=== PATIENT | male | born 1960 | race Caucasian/White ===

== ENCOUNTER 2020-06-29 03:12 | Emergency (ER) | payer OTHER ==
[~2020-06-29] VITALS: Ht 175.3 cm; Wt 86.2 kg
[2020-06-29 03:16] VITALS: Ht 175.3 cm; Wt 86.2 kg
[2020-06-29 04:51] LABS: PLATELET COUNT 275 x10^3mcL (130-400); RED CELL DISTRIBUTION WIDTH 13.9 % (11.5-14.5)
[2020-06-29 04:59] LABS: CALCIUM 9.4 mg/dL (8.5-10.1); CARBON DIOXIDE 27.1 mmol/L (21-32); CREATININE SERUM 1.3 mg/dL (0.7-1.3); POTASSIUM SERUM 4.6 mmol/L (3.5-5.1)
[2020-06-29 05:04] LABS: ALBUMIN 3.5 g/dL (3.4-5.0); BILIRUBIN TOTAL 0.32 mg/dL (0.20-1.00); TOTAL PROTEIN, SERUM 7.7 g/dL (6.4-8.2)
[2020-06-29 05:35] LABS: AMPHETAMINE QUAL UR NONE DETECTED (See below)
[2020-06-29 06:22] VITALS: BP 124/69
== END 2020-06-29 06:22 | disposition home or self-care (01) ==
LOC: ED 03:12
PROVIDERS: Emergency Medicine
DX: R56.9 Unspecified convulsions (principal); R06.02 Shortness of breath; F17.210 Nicotine dependence, cigarettes, uncomplicated; Z95.0 Presence of cardiac pacemaker
CPT/HCPCS: 82962; J2060; J7030; Q0092

== ENCOUNTER 2020-08-07 18:03 | Emergency (ER) | payer OTHER ==
[~2020-08-07] VITALS: Ht 175.3 cm; Wt 89.8 kg
[~2020-08-07 18:03] MED LIST: D-10001 TAB PO; KEP500 PO; NOR10T PO
[2020-08-07 18:30] VITALS: Ht 175.3 cm; Wt 89.8 kg
[2020-08-07 21:00] VITALS: BP 124/68
== END 2020-08-07 21:20 | disposition home or self-care (01) ==
LOC: ED 18:03
DX: L03.116 Cellulitis of left lower limb (principal); S82.892D Other fracture of left lower leg, subsequent encounter for closed fracture with routine healing; X58.XXXD Exposure to other specified factors, subsequent encounter; Z95.0 Presence of cardiac pacemaker
CPT/HCPCS: J0690; J1885

== ENCOUNTER 2020-08-12 08:30 | Emergency (ER) | payer OTHER ==
[~2020-08-12] VITALS: Ht 175.3 cm; Wt 88.5 kg
[2020-08-12 08:40] VITALS: BP 128/70; Ht 175.3 cm; Wt 88.5 kg
== END 2020-08-12 09:40 | disposition home or self-care (01) ==
LOC: ED 08:30
DX: S82.852G Displaced trimalleolar fracture of left lower leg, subsequent encounter for closed fracture with delayed healing (principal); G40.909 Epilepsy, unspecified, not intractable, without status epilepticus; F17.210 Nicotine dependence, cigarettes, uncomplicated; Z98.890 Other specified postprocedural states; X58.XXXD Exposure to other specified factors, subsequent encounter
CPT/HCPCS: 99406

== ENCOUNTER → 2020-09-21 | Outpatient (CLI) | payer OTHER, MEDICAID | END | disposition home or self-care (01) | LOC: RD 12:28 | PROVIDERS: ATTEND Orthopaedic Surgery | DX: M25.572 Pain in left ankle and joints of left foot (principal) ==